=== PATIENT | female | born 1970 | race American Indian/Alaskan Native ===

== ENCOUNTER 2017-09-24 18:44 | Emergency (ER) | payer BC ==
[2017-09-24 20:21] LABS: Basophils % (Auto) 0.4 % (0.0-1.8); Eosinophils % (Auto) 1.6 % (0.0-4.3); Hematocrit 33.7 % (30.3-42.9); Mean Corpuscular HGB Conc 33 % (30-34); Mean Corpuscular Hemoglobin 27 pg (28-32); Mean Corpuscular Volume 83 fl (79-97); Platelet Count 354 K/mm3 (140-440); Red Blood Count 4.05 M/mm3 (3.65-5.03); Red Cell Distribution Width 17.2 % (13.2-15.2); White Blood Count 9.2 K/mm3 (4.5-11.0)
[2017-09-24 20:42] LABS: BUN/Creatinine Ratio 11; Blood Urea Nitrogen 8 mg/dL (7-17); Carbon Dioxide 26 mmol/L (22-30); Glucose 105 mg/dL (65-100)
[2017-09-24 20:43] LABS: Anion Gap 18 mmol/L; Chloride 100.9 mmol/L (98-107); Potassium 3.9 mmol/L (3.6-5.0); Sodium 141 mmol/L (137-145)
--- NOTE | 2017-09-24 21:03 | XRay Report ---
FINAL REPORT EXAM: XR FOOT 2V LT HISTORY: swollen, red painful LEFT FOOT TECHNIQUE: 2 views Left foot PRIORS: None. FINDINGS: No fracture or dislocation identified. Joint spaces are within normal limits. No erosive bony change identified. No bony lesions are identified. IMPRESSION: Negative foot series
[2017-09-24] MEDS ORDERED: BOOSTRIX IM ONE (22:38)
[2017-09-24] MEDS ORDERED: MOTRIN PO ONE (22:38)
--- NOTE | 2017-09-24 22:39 | Emergency Department Report ---
ED Lower Extremity HPI - General Chief Complaint: Extremity Injury, Lower Stated Complaint: FB IN FOOT Time Seen by Provider: 09/24/17 22:10 Source: patient Mode of arrival: Ambulatory Limitations: No Limitations - History of Present Illness Initial Comments: 47-year-old female past medical history hypertension presents with complaint of splinter embedded in mid bottom foot for approximately 3 weeks. Patient states that she was walking barefoot outside her home and felt a sudden sharp pain in her mid foot looked down and saw a small puncture wound. Patient unaware of tetanus status. States she has been scraping out and trying to remove it herself. Small visible circular wound site less than 1 cm left bottom plantar region. No visible surrounding cellulitis erythema or fluctuance. Patient denies difficulty walking. MD Complaint: foot injury Onset/Timin -: week(s) Injury: Foot: Left Place: home Context: other (stepped on debris on groudn barefoot) - Related Data Previous Rx's Medication Instructions Recorded Last Taken Type Bacitracin Zinc Oint [Antibiotic 1 applicatio TP BID #1 oint...g. 09/24/17 Unknown Rx Oint] Cephalexin [Keflex] 500 mg PO Q12HR #20 cap 09/24/17 Unknown Rx Ibuprofen [Motrin] 800 mg PO Q8HR PRN #30 tablet 09/24/17 Unknown Rx Allergies Allergy/AdvReac Type Severity Reaction Status Date / Time JOSH Inhibitors Allergy Unknown Verified 09/24/17 19:41 ED Review of Systems ROS: Stated complaint: FB IN FOOT Other details as noted in HPI Constitutional: denies: chills, fever Eyes: denies: eye pain, eye discharge, vision change ENT: denies: ear pain, throat pain Respiratory: denies: cough, shortness of breath, wheezing Cardiovascular: denies: chest pain, palpitations Endocrine: no symptoms reported Gastrointestinal: denies: abdominal pain, nausea, diarrhea Genitourinary: denies: urgency, dysuria, discharge Musculoskeletal: as per HPI (3 weeks of persistent bottom midfoot pain). denies : back pain, joint swelling, arthralgia Skin: denies: rash, lesions Neurological: denies: headache, weakness, paresthesias Psychiatric: denies: anxiety, depression Hematological/Lymphatic: denies: easy bleeding, easy bruising ED Past Medical Hx - Past Medical History Previous Medical History?: Yes Hx Hypertension: Yes - Surgical History Past Surgical History?: Yes Additional Surgical History: Fibroids,gland removal, lipoma removed from back, B /L pinky toes - Social History Smoking Status: Never Smoker Substance Use Type: None - Medications Home Medications: Home Medications Medication Instructions Recorded Confirmed Last Taken Type Bacitracin Zinc Oint [Antibiotic 1 applicatio TP BID #1 oint...g. 09/24/17 Unknown Rx Oint] Cephalexin [Keflex] 500 mg PO Q12HR #20 cap 09/24/17 Unknown Rx Ibuprofen [Motrin] 800 mg PO Q8HR PRN #30 tablet 09/24/17 Unknown Rx ED Physical Exam - General Limitations: No Limitations General appearance: alert, in no apparent distress - Head Head exam: Present: atraumatic, normocephalic - Eye Eye exam: Present: normal appearance, PERRL, EOMI - ENT ENT exam: Present: mucous membranes moist - Neck Neck exam: Present: normal inspection - Respiratory Respiratory exam: Present: normal lung sounds bilaterally. Absent: respiratory distress - Cardiovascular Cardiovascular Exam: Present: regular rate, normal rhythm. Absent: systolic murmur, diastolic murmur, rubs, gallop - GI/Abdominal GI/Abdominal exam: Present: soft, normal bowel sounds - Extremities Exam Extremities exam: Present: normal inspection - Expanded Lower Extremity Exam Left Hip exam: Present: normal inspection, full ROM Upper Leg exam: Present: normal inspection, full ROM Knee exam: Present: normal inspection, full ROM Lower Leg exam: Present: normal inspection, full ROM Ankle exam: Present: normal inspection, full ROM Foot/Toe exam: Present: abrasion (small circular puncture wound/abrasion with palpable foreign body just underneath skin), puncture wound, foreign body ( small palable foriegn body underneath skin midfoot) Neuro vascular tendon exam: Present: no vascular compromise (distal dorsalis pedis and posterior tibial pulses intact) 1 - puncture wound with palable FB here, less than 1 cm - Back Exam Back exam: Present: normal inspection - Neurological Exam Neurological exam: Present: alert, oriented X3 - Psychiatric Psychiatric exam: Present: normal affect, normal mood - Skin Skin exam: Present: warm, dry, intact, normal color. Absent: rash ED Course Vital Signs 09/24/17 09/24/17 09/24/17 19:36 19:41 22:51 Temperature 98.6 F 98.6 F Pulse Rate 103 H 98 H Respiratory 18 18 16 Rate Blood Pressure 151/95 151/95 O2 Sat by Pulse 97 98 Oximetry - I & D Left Plantar Foot Type of Procedure: Simple Site: bottom of left midfoot Blade Size: 11 I & D Procedure: betadine prep Progress: Area infiltrated with lidocaine with epinephrine. A scalpel used to remove foreign body directly underneath skin. Small shard of glass removed. Minimal to no bleeding procedure tolerated well. ED Lower Extremity MDM - Lab Data Result diagrams: 09/24/17 20:02 09/24/17 20:02 - Medical Decision Making A/P: Puncture wound left foot, foreign body embedded underneath skin 1-small shard of glass scuccessfuly removed from puncture wound left foot, tissue soft to palable afterward 2-no clinical signs of cellulitis or abscess 3-Keflex 500 twice a day 7 days 4- Motrin 800 when necessary 5-follow-up with podiatry. I advised patient on wound care and advised her to return for any significant bleeding pus drainage swelling or erythema of foot. Tetanus updated today. Critical care attestation.: If time is entered above; I have spent that time in minutes in the direct care of this critically ill patient, excluding procedure time. ED Disposition Clinical Impression: Puncture wound Foreign body in foot, left Qualifiers: Encounter type: initial encounter Qualified Code(s): S90.852A - Superficial foreign body, left foot, initial encounter Disposition: - TO HOME OR SELFCARE Is pt being admited?: No Does the pt Need Aspirin: No Condition: Stable Instructions: Puncture Wound (ED), Soft Tissue Foreign Body (ED), Acute Wound Care (ED) Prescriptions: Bacitracin Zinc Oint [Antibiotic Oint] 1 applicatio TP BID #1 oint...g. Cephalexin [Keflex] 500 mg PO Q12HR #20 cap Ibuprofen [Motrin] 800 mg PO Q8HR PRN #30 tablet PRN Reason: Pain Referrals: PRIMARY CARE, [Primary Care Provider] - 3-5 Days CUAUHTEMOC MCELROY DPM [Staff Physician] - 3-5 Days Forms: Accompanied Note, Work/School Release Form(ED) Time of Disposition: 23:11
[2017-09-24] MEDS ORDERED: XYLOCAINE 2%/ EPI 1:200,000 INFILTRATI ONE (22:45)
[2017-09-24] MEDS ORDERED: XYLOCAINE 1%/ EPI 1:100,000 INFILTRATI NR (23:00)
[2017-09-24 23:24] VITALS: BP 152/99
== END 2017-09-24 23:24 | disposition home or self-care (01) ==
LOC: ED 18:44
DX: S90.852A Superficial foreign body, left foot, initial encounter (principal); I10 Essential (primary) hypertension; W45.8XXA Other foreign body or object entering through skin, initial encounter; Y93.89 Activity, other specified; Y92.89 Other specified places as the place of occurrence of the external cause; Y99.8 Other external cause status
CPT/HCPCS: 36415; 80048; 85025; 90471; 90715

== ENCOUNTER 2021-09-27 18:16 | Emergency (ER) | payer BC, OTHER ==
[2021-09-27] MEDS ORDERED: LIDOCAINE (2%) 20 MG/1 ML VIAL 20 ML MDV INFILTRATI STA (19:01)
--- NOTE | 2021-09-27 19:41 | Emergency Department Report ---
ED Lower Extremity HPI - General Chief Complaint: Wound/Laceration Stated Complaint: STEPPED ON GLASS Time Seen by Provider: 09/27/21 18:57 Source: patient Mode of arrival: Ambulatory Limitations: No Limitations - History of Present Illness Initial Comments: 51-year-old female to emerge department complaining of stepping on something sharp in her bedroom last night around 10 PM which is continue to aggravate her today she did notice a sharp object in the foot so she has a suspicion for retained foreign body presents emergency department seeking closer evaluation and removal of the foreign body. She reports no numbness or tingling. No fevers, chills, sweats. MD Complaint: foot injury -: Gradual - Related Data Previous Rx's Medication Instructions Recorded Last Taken Type Bacitracin Zinc Oint [Antibiotic 1 applicatio TP BID #1 oint...g. 09/24/17 Unknown Rx Oint] Ibuprofen [Motrin] 800 mg PO Q8HR PRN #30 tablet 09/24/17 Unknown Rx cephALEXin [Keflex] 500 mg PO Q12HR #20 cap 09/27/21 Unknown Rx traMADoL [Ultram] 50 mg PO Q4HR PRN #20 tablet 09/27/21 Unknown Rx Allergies Allergy/AdvReac Type Severity Reaction Status Date / Time JOSH Inhibitors Allergy Unknown Verified 09/24/17 19:41 ED Review of Systems ROS: Stated complaint: STEPPED ON GLASS Other details as noted in HPI Comment: All other systems reviewed and negative ED Past Medical Hx - Past Medical History Hx Hypertension: Yes - Surgical History Additional Surgical History: Fibroids,gland removal, lipoma removed from back, B/L pinky toes - Social History Smoking Status: Never Smoker Substance Use Type: None - Medications Home Medications: Home Medications Medication Instructions Recorded Confirmed Last Taken Type Bacitracin Zinc Oint [Antibiotic 1 applicatio TP BID #1 oint...g. 09/24/17 Unknown Rx Oint] Ibuprofen [Motrin] 800 mg PO Q8HR PRN #30 tablet 09/24/17 Unknown Rx cephALEXin [Keflex] 500 mg PO Q12HR #20 cap 09/27/21 Unknown Rx traMADoL [Ultram] 50 mg PO Q4HR PRN #20 tablet 09/27/21 Unknown Rx ED Physical Exam - General Limitations: No Limitations General appearance: alert, in no apparent distress - Head Head exam: Present: atraumatic, normocephalic - Eye Eye exam: Present: normal appearance, PERRL, EOMI. Absent: scleral icterus Pupils: Present: normal accommodation - ENT ENT exam: Present: normal exam, normal orophraynx, mucous membranes moist - Neck Neck exam: Present: normal inspection - Respiratory Respiratory exam: Present: normal lung sounds bilaterally. Absent: respiratory distress, wheezes, rales, chest wall tenderness, decreased breath sounds - Cardiovascular Cardiovascular Exam: Present: regular rate, normal rhythm. Absent: systolic murmur, diastolic murmur, rubs, gallop - GI/Abdominal GI/Abdominal exam: Present: soft, normal bowel sounds - Extremities Exam Extremities exam: Present: normal inspection, other (Tenderness to the sole of the left foot centrally located puncture site is noted when expressed sharp pointy object is protruding from the os.) - Back Exam Back exam: Present: normal inspection - Neurological Exam Neurological exam: Present: alert, oriented X3 - Psychiatric Psychiatric exam: Present: normal affect, normal mood - Skin Skin exam: Present: warm, dry, intact, normal color. Absent: rash ED Course Vital Signs 09/27/21 18:17 Temperature 97.5 F L Pulse Rate 80 Respiratory 16 Rate Blood Pressure 183/104 [Right] O2 Sat by Pulse 99 Oximetry - Procedure Description Procedures done: Foreign body moved from foot left. Area was prepped and draped in sterile fashion anesthesia achieved with 2% lidocaine with no epinephrine x2 cc. Number 11 blade was used to increase the puncture site to millimeters and curved Kellys were introduced to remove a sharp glass foreign body. No retained foreign body did remain. The procedure was tolerated well and a pressure drainage was placed after irrigation and recleaning the wound. Critical care attestation.: If time is entered above; I have spent that time in minutes in the direct care of this critically ill patient, excluding procedure time. ED Disposition Clinical Impression: Foreign body in left foot Disposition: 01 HOME / SELF CARE / HOMELESS Is pt being admited?: No Does the pt Need Aspirin: No Condition: Stable Instructions: Sliver Removal, Care After Prescriptions: cephALEXin [Keflex] 500 mg PO Q12HR #20 cap traMADoL [Ultram] 50 mg PO Q4HR PRN #20 tablet PRN Reason: Pain Referrals: KARMA FREEMAN MD [Staff Physician] - 3-5 Days
[2021-09-27 20:09] VITALS: BP 153/88
== END 2021-09-27 20:05 | disposition home or self-care (01) ==
LOC: ED 18:16
DX: S90.852A Superficial foreign body, left foot, initial encounter (principal); I10 Essential (primary) hypertension; W22.8XXA Striking against or struck by other objects, initial encounter; Y93.89 Activity, other specified; Y92.89 Other specified places as the place of occurrence of the external cause; Y99.8 Other external cause status
CPT/HCPCS: 10120; 99282; J3490